=== PATIENT | male | born 1935 | race Caucasian/White ===

== ENCOUNTER 2020-09-21 23:35 | Inpatient (IN) | payer MEDICARE ==
[2020-09-22 00:05] LABS: Base Excess (BEa) -0.7 mEq/L (-2.0 to +3.0); CO2 Tension 51.6 mmHg (35.0-45.0); Calcium, Ionized (arterial) 1.21 mmol/L (1.12-1.30); Carboxyhemoglobin (COHb) 0.5 gm% (0.0-3.0); Hemoglobin (Hb) 12.7 g/dL (14.0-18.0); O2 Tension (PaO2), arterial 62.2 mmHg (> 60.0); Potassium - ABG Lab 4.4 mmol/L (3.70-5.30); Puncture Site LBA; pH, Arterial 7.32 (7.35-7.45)
[2020-09-22 00:05] LABS: #Monocytes 0.6 10x3/uL (0.0-1.1); #Neutrophils 12.9 10x3/uL (1.5-8.4); %Basophils 0.1 % (0.0-2.0); %Lymphocytes 2.4 % (18.0-47.0); %Monocytes 4.1 % (0.0-10.0); %Neutrophils 92.2 % (40.0-75.0); Hemoglobin 12.2 g/dL (13.5-17.5); Mean Corpuscular HGB CONC 31.6 g/dL (32.0-36.0); Mean Corpuscular Hemoglobin 32.3 pg (27.0-33.0); Mean Corpuscular Volume 102.1 fl (81.2-95.1); Mean Platelet Volume 11.2 fl (7.4-10.4); Platelet Count 312 10x3/uL (150-450); RBC Distribution Width 14.5 % (11.5-14.5); Red Blood Cell (RBC) Count 3.78 10x6/uL (4.32-5.72)
[2020-09-22 00:16] LABS: INR-International Normal Ratio 1.1; Prothrombin Time 11.9 sec (9.5-12.1)
[2020-09-22] MEDS ORDERED: Dexamethasone 10 MG/ML VIAL ONE ×2 (00:16→08:46)
[2020-09-22] MEDS ORDERED: Azithromycin 500 MG VIAL ONE (00:17)
[2020-09-22] MEDS ORDERED: cefTRIAXone\\ROCEPHIN 1 GM VIAL ONE ×2 (00:17→04:23)
[2020-09-22 00:18] LABS: ALT (SGPT) 42 U/L (8-55); AST (SGOT) 30 U/L (5-34); Albumin 2.7 g/dL (3.4-4.8); Alkaline Phosphatase 100 U/L (40-110); Anion Gap 13 mmol/L (10-20); BUN (Urea Nitrogen) 94 mg/dL (8.4-25.7); CRP (Inflammatory) 19.55 mg/dL (= or < 0.5); Calc. Creatinine Clearance 0 mL/min (70-130); Calcium 9.1 mg/dL (7.8-10.44); Carbon Dioxide 25 mmol/L (23-31); Chloride 108 mmol/L (98-107); Globulin 5.5 g/dL (2.4-3.5); Glucose 166 mg/dL (83-110); Potassium 4.4 mmol/L (3.5-5.1); Protein, Total 8.2 g/dL (5.8-8.1); Sodium 142 mmol/L (136-145)
[2020-09-22 01:33] LABS: Bilirubin Neg (Negative); Blood, Urine Negative (Negative); Glucose, Urine (Dipstick) Normal (Negative); Ketone, Urine Negative (Negative); Leukocyte Negative (Negative); Nitrite Negative (Negative); Protein, Urine (Dipstick) Negative (Neg-Trace); Specific Gravity, Urine 1.015 (1.002-1.036); Urobilinogen Normal mg/dL (Less than 2)
[2020-09-22 01:34] LABS: Clarity Slightly Cloudy (Clear)
[2020-09-22] MEDS ORDERED: Ondansetron PF 4 MG/2 ML Vial IVP PRN (03:48)
[2020-09-22] MEDS ORDERED: Acetaminophen 650 MG Suppository PR PRN (03:48)
[2020-09-22] MEDS ORDERED: cefTRIAXone\\ROCEPHIN 1 GM in Sodium Chloride 0.9% 100 ML IVPB SCH (04:00)
[2020-09-22] MEDS ORDERED: Sodium Chloride 0.9% 1,000 ML IV SCH (04:00)
[2020-09-22] MEDS ORDERED: REMDESIVIR 200 MG in Sodium Chloride 0.9% 250 ML 210 ML IV SCH (04:15)
[2020-09-22] MEDS ORDERED: [UNRECOGNIZED DRUG - REMARK] IVPB SCH (04:15)
[2020-09-22 07:14] LABS: #Monocytes 0.5 10x3/uL (0.0-1.1); #Neutrophils 11.4 10x3/uL (1.5-8.4); %Basophils 0.1 % (0.0-2.0); %Lymphocytes 3.5 % (18.0-47.0); %Monocytes 4.1 % (0.0-10.0); %Neutrophils 91.3 % (40.0-75.0); Hemoglobin 11.8 g/dL (13.5-17.5); Mean Corpuscular HGB CONC 32.2 g/dL (32.0-36.0); Mean Corpuscular Hemoglobin 32.9 pg (27.0-33.0); Mean Corpuscular Volume 102.2 fl (81.2-95.1); Mean Platelet Volume 11.2 fl (7.4-10.4); Platelet Count 293 10x3/uL (150-450); RBC Distribution Width 14.5 % (11.5-14.5); Red Blood Cell (RBC) Count 3.59 10x6/uL (4.32-5.72); White Blood Cell (WBC) Count 12.4 10x3/uL (3.5-10.5)
[2020-09-22 07:48] LABS: Anion Gap 14 mmol/L (10-20); BUN (Urea Nitrogen) 92 mg/dL (8.4-25.7); Calc. Creatinine Clearance 0 mL/min (70-130); Carbon Dioxide 25 mmol/L (23-31); Glucose 149 mg/dL (83-110); Magnesium 3.3 mg/dL (1.6-2.6); Potassium 4.5 mmol/L (3.5-5.1); Sodium 144 mmol/L (136-145)
[2020-09-22 07:53] LABS: Chloride 110 mmol/L (98-107)
[2020-09-22] MEDS ORDERED: Enoxaparin Sodium 30 MG/0.3 ML SYRINGE ONE (08:46)
[2020-09-22] MEDS ORDERED: Aspirin 300 MG Suppository ONE (08:47)
[2020-09-22] MEDS ORDERED: Pantoprazole 40 MG VIAL ONE (08:47)
[2020-09-22] MEDS: Dexamethasone 4 mg/ml Vial SLOW IVP SCH (09:08)
[2020-09-22] MEDS: Enoxaparin Sodium 30 MG/0.3 ML SYRINGE SC SCH (09:08)
[2020-09-22] MEDS: Pantoprazole 40 MG VIAL IVP SCH (09:08)
[2020-09-22] MEDS: Aspirin 300 MG Suppository PR SCH (09:08)
[2020-09-22] MEDS ORDERED: VANCOMYCIN 2 GRAM/400 ML BAG 2 GM in Premix Bag 1 BAG IVPB SCH (20:00)
[2020-09-23] MEDS: Azithromycin 500 MG in Sodium Chloride 0.9% 250 ML 250 ML IVPB SCH (02:16)
[2020-09-23] MEDS: cefTRIAXone\\ROCEPHIN 2 GM in Sodium Chloride 0.9% 100 ML IVPB SCH (03:56)
[2020-09-23] MEDS ORDERED: REMDESIVIR 100 MG in Sodium Chloride 0.9% 250 ML 230 ML IV SCH (04:15)
[2020-09-23 05:03] LABS: Magnesium 3.4 mg/dL (1.6-2.6)
[2020-09-23] MEDS ORDERED: Aspirin 81 mg Enteric Coated Tablet PO SCH (09:00)
[2020-09-23] MEDS: Enoxaparin Sodium 30 MG/0.3 ML SYRINGE SC SCH (09:34)
[2020-09-23] MEDS: Aspirin 300 MG Suppository PR SCH (09:34)
[2020-09-23] MEDS: Dexamethasone 4 mg/ml Vial SLOW IVP SCH (09:34)
[2020-09-23] MEDS: Pantoprazole 40 MG VIAL IVP SCH (09:35)
[2020-09-23 10:53] LABS: #Monocytes 0.7 10x3/uL (0.0-1.1); %Basophils 0.2 % (0.0-2.0); %Lymphocytes 2.4 % (18.0-47.0); %Monocytes 5.4 % (0.0-10.0); %Neutrophils 90.5 % (40.0-75.0); Hemoglobin 12.2 g/dL (13.5-17.5); Mean Corpuscular HGB CONC 31.6 g/dL (32.0-36.0); Mean Corpuscular Hemoglobin 32.3 pg (27.0-33.0); Mean Corpuscular Volume 102.1 fl (81.2-95.1); Mean Platelet Volume 11.2 fl (7.4-10.4); Platelet Count 351 10x3/uL (150-450); RBC Distribution Width 14.7 % (11.5-14.5); Red Blood Cell (RBC) Count 3.78 10x6/uL (4.32-5.72); White Blood Cell (WBC) Count 13.2 10x3/uL (3.5-10.5)
[2020-09-23 11:04] LABS: ALT (SGPT) 31 U/L (8-55); AST (SGOT) 23 U/L (5-34); Albumin 2.6 g/dL (3.4-4.8); Alkaline Phosphatase 102 U/L (40-110); Anion Gap 16 mmol/L (10-20); BUN (Urea Nitrogen) 86 mg/dL (8.4-25.7); Bilirubin, Total 0.6 mg/dL (0.2-1.2); Calc. Creatinine Clearance 47 mL/min (70-130); Calcium 9.3 mg/dL (7.8-10.44); Carbon Dioxide 23 mmol/L (23-31); Chloride 115 mmol/L (98-107); Globulin 5.1 g/dL (2.4-3.5); Glucose 148 mg/dL (83-110); Potassium 4.5 mmol/L (3.5-5.1); Protein, Total 7.7 g/dL (5.8-8.1); Sodium 149 mmol/L (136-145)
[2020-09-23] MEDS ORDERED: Furosemide 40 MG/4 ML VIAL SLOW IVP SCH (14:30)
[2020-09-23] MEDS ORDERED: Lorazepam 0.5 MG TAB PO PRN (16:13)
[2020-09-23] MEDS: Lorazepam 2 MG/ML VIAL SLOW IVP PRN (18:14)
[2020-09-23] MEDS: VANCOMYCIN 1.75 GM/350 ML BAG 1.75 GM in Premix Bag 1 BAG IVPB SCH (20:06)
[2020-09-24] MEDS: Azithromycin 500 MG in Sodium Chloride 0.9% 250 ML 250 ML IVPB SCH (01:26)
[2020-09-24] MEDS: Lorazepam 2 MG/ML VIAL SLOW IVP PRN (01:30)
[2020-09-24] MEDS: cefTRIAXone\\ROCEPHIN 2 GM in Sodium Chloride 0.9% 100 ML IVPB SCH (04:04)
[2020-09-24 04:53] LABS: ALT (SGPT) 34 U/L (8-55); AST (SGOT) 21 U/L (5-34); Albumin 2.5 g/dL (3.4-4.8); Alkaline Phosphatase 109 U/L (40-110); Anion Gap 18 mmol/L (10-20); BUN (Urea Nitrogen) 101 mg/dL (8.4-25.7); Bilirubin, Total 0.7 mg/dL (0.2-1.2); CRP (Inflammatory) 10.09 mg/dL (= or < 0.5); Calc. Creatinine Clearance 40 mL/min (70-130); Calcium 9.3 mg/dL (7.8-10.44); Carbon Dioxide 23 mmol/L (23-31); Chloride 115 mmol/L (98-107); Globulin 5.5 g/dL (2.4-3.5); Glucose 137 mg/dL (83-110); Potassium 4.8 mmol/L (3.5-5.1); Sodium 151 mmol/L (136-145)
[2020-09-24 05:11] LABS: Hemoglobin 12.6 g/dL (13.5-17.5); Mean Corpuscular HGB CONC 31.9 g/dL (32.0-36.0); Mean Corpuscular Hemoglobin 32.6 pg (27.0-33.0); Mean Corpuscular Volume 102.1 fl (81.2-95.1); Mean Platelet Volume 11.4 fl (7.4-10.4); Platelet Count 426 10x3/uL (150-450); Red Blood Cell (RBC) Count 3.87 10x6/uL (4.32-5.72); White Blood Cell (WBC) Count 14.9 10x3/uL (3.5-10.5)
[2020-09-24 05:16] LABS: #Monocytes 0.9 10x3/uL (0.0-1.1); #Neutrophils 12.9 10x3/uL (1.5-8.4); %Basophils 0.3 % (0.0-2.0); %Monocytes 6.1 % (0.0-10.0); %Neutrophils 89.3 % (40.0-75.0)
[2020-09-24] MEDS: Pantoprazole 40 MG VIAL IVP SCH (08:26)
[2020-09-24] MEDS: Dexamethasone 4 mg/ml Vial SLOW IVP SCH (08:26)
[2020-09-24] MEDS: Enoxaparin Sodium 30 MG/0.3 ML SYRINGE SC SCH (08:26)
[2020-09-24] MEDS: Aspirin 300 MG Suppository PR SCH (08:26)
[2020-09-24] MEDS ORDERED: Dexmedetomidine In 0.9 % NaCl 100 ML IVPB SCH (09:15)
[2020-09-24 10:58] LABS: Actual Bicarbonate (HCO3a) 23.8 mEq/L (22-28); Base Excess (BEa) -3.6 mEq/L (-2.0 to +3.0); CO2 Tension 52.5 mmHg (35.0-45.0); Calcium, Ionized (arterial) 1.24 mmol/L (1.12-1.30); Carboxyhemoglobin (COHb) 0.4 gm% (0.0-3.0); Hemoglobin (Hb) 13.3 g/dL (14.0-18.0); O2 Tension (PaO2), arterial 70.5 mmHg (> 60.0); Potassium - ABG Lab 4.7 mmol/L (3.70-5.30); Puncture Site RRA; pH, Arterial 7.27 (7.35-7.45)
[2020-09-24] MEDS ORDERED: Carvedilol 12.5 MG TAB PO SCH (11:00)
[2020-09-24 11:03] LABS: ALV-art Gradient 362.975 mmHg (0-20)
[2020-09-24] MEDS ORDERED: Ventilator Sedation Protocol 1 EACH FS SCH ×3 (13:15→13:30)
[2020-09-24] MEDS ORDERED: Vecuronium Bromide 50 MG in Sodium Chloride 0.9% 250 ML 250 ML IV SCH (13:15)
[2020-09-24] MEDS ORDERED: Propofol 1,000 MG/100 ML VIAL IV ONE (13:29)
[2020-09-24] MEDS ORDERED: EPINEPHrine 1 MG/10 ML Abboject SYRINGE ONE (13:41)
[2020-09-24] MEDS ORDERED: Norepinephrine 4 MG/4 ML VIAL ONE (13:43)
[2020-09-24] MEDS ORDERED: Lorazepam 2 MG/ML VIAL SLOW IVP PRN (13:45)
[2020-09-24] MEDS ORDERED: Fentanyl BOLUS 250 ML IVPB PRN (13:45)
[2020-09-24] MEDS ORDERED: DISCONTINUE PREVIOUS NARCOTIC PAIN MEDICATIONS AND BENZODIAZEPINES FS SCH (13:45)
[2020-09-24] MEDS ORDERED: Morphine 2 MG/ML VIAL SLOW IVP PRN (13:45)
[2020-09-24] MEDS ORDERED: fentaNYL Citrate-0.9 % NaCl/PF 100 ML IVPB SCH (13:45)
[2020-09-24] MEDS ORDERED: Norepinephrine 8 MG/0.9% NS 250 ML IVPB SCH (13:45)
[2020-09-24] MEDS ORDERED: Propofol BOLUS 1,000 MG/100 ML VIAL IV PRN (13:45)
[2020-09-24] MEDS: Propofol 1,000 MG/100 ML VIAL IV PRN (13:56)
[2020-09-24] MEDS: Vecuronium Bromide 50 MG in Sodium Chloride 0.9% 250 ML 250 ML IV SCH (14:27)
[2020-09-24 15:40] LABS: Actual Bicarbonate (HCO3a) 22.3 mEq/L (22-28); Base Excess (BEa) -2.5 mEq/L (-2.0 to +3.0); CO2 Tension 38.7 mmHg (35.0-45.0); Calcium, Ionized (arterial) 1.21 mmol/L (1.12-1.30); Carboxyhemoglobin (COHb) 0.3 gm% (0.0-3.0); Hemoglobin (Hb) 12.3 g/dL (14.0-18.0); O2 Tension (PaO2), arterial 190.8 mmHg (> 60.0); Potassium - ABG Lab 4.9 mmol/L (3.70-5.30); Puncture Site RRA; pH, Arterial 7.38 (7.35-7.45)
[2020-09-24 15:44] LABS: ALV-art Gradient 473.825 mmHg (0-20)
[2020-09-24] MEDS: Carvedilol 12.5 MG TAB PO SCH (18:40)
[2020-09-24 20:52] LABS: Vancomycin, Trough 32.9 ug/mL
[2020-09-24] MEDS: VANCOMYCIN 1.75 GM/350 ML BAG 1.75 GM in Premix Bag 1 BAG IVPB SCH (20:54)
[2020-09-24] MEDS ORDERED: VANCOMYCIN 1.75 GM/350 ML BAG 1.75 GM in Premix Bag 1 BAG IVPB SCH (21:00)
[2020-09-24 23:45] LABS: Actual Bicarbonate (HCO3a) 23.8 mEq/L (22-28); Base Excess (BEa) -1.4 mEq/L (-2.0 to +3.0); CO2 Tension 41.8 mmHg (35.0-45.0); Calcium, Ionized (arterial) 1.27 mmol/L (1.12-1.30); Carboxyhemoglobin (COHb) 0.2 gm% (0.0-3.0); Hemoglobin (Hb) 14.6 g/dL (14.0-18.0); Potassium - ABG Lab 4.6 mmol/L (3.70-5.30); Puncture Site RRA; pH, Arterial 7.37 (7.35-7.45)
[2020-09-25] MEDS: Propofol 1,000 MG/100 ML VIAL IV PRN ×2 (01:05→08:21)
[2020-09-25] MEDS ORDERED: Sodium Chloride 0.9% 250 ML 250 ML ONE (01:43)
[2020-09-25] MEDS: Azithromycin 500 MG in Sodium Chloride 0.9% 250 ML 250 ML IVPB SCH (01:54)
[2020-09-25] MEDS: cefTRIAXone\\ROCEPHIN 2 GM in Sodium Chloride 0.9% 100 ML IVPB SCH (03:21)
[2020-09-25] MEDS: Vecuronium Bromide 50 MG in Sodium Chloride 0.9% 250 ML 250 ML IV SCH ×2 (04:08→20:07)
[2020-09-25 04:36] LABS: ALT (SGPT) 28 U/L (8-55); AST (SGOT) 12 U/L (5-34); Albumin 2.4 g/dL (3.4-4.8); Alkaline Phosphatase 94 U/L (40-110); Anion Gap 18 mmol/L (10-20); BUN (Urea Nitrogen) 116 mg/dL (8.4-25.7); Bilirubin, Total 0.7 mg/dL (0.2-1.2); CRP (Inflammatory) 6.21 mg/dL (= or < 0.5); Calc. Creatinine Clearance 33 mL/min (70-130); Carbon Dioxide 22 mmol/L (23-31); Chloride 119 mmol/L (98-107); Globulin 4.9 g/dL (2.4-3.5); Glucose 136 mg/dL (83-110); Potassium 4.7 mmol/L (3.5-5.1); Protein, Total 7.3 g/dL (5.8-8.1); Sodium 154 mmol/L (136-145)
[2020-09-25 04:37] LABS: #Monocytes 0.8 10x3/uL (0.0-1.1); #Neutrophils 10.1 10x3/uL (1.5-8.4); %Basophils 0.2 % (0.0-2.0); %Lymphocytes 2.4 % (18.0-47.0); %Monocytes 6.9 % (0.0-10.0); %Neutrophils 88.7 % (40.0-75.0); Hemoglobin 11.7 g/dL (13.5-17.5); Mean Corpuscular HGB CONC 31.4 g/dL (32.0-36.0); Mean Corpuscular Hemoglobin 32.3 pg (27.0-33.0); Mean Platelet Volume 11.4 fl (7.4-10.4); Platelet Count 382 10x3/uL (150-450); Red Blood Cell (RBC) Count 3.62 10x6/uL (4.32-5.72); White Blood Cell (WBC) Count 11.4 10x3/uL (3.5-10.5)
[2020-09-25] MEDS: Aspirin 300 MG Suppository PR SCH (08:21)
[2020-09-25] MEDS: Dexamethasone 4 mg/ml Vial SLOW IVP SCH (08:22)
[2020-09-25] MEDS: Pantoprazole 40 MG VIAL IVP SCH (08:23)
[2020-09-25] MEDS ORDERED: Furosemide 40 MG/4 ML VIAL SLOW IVP SCH (09:00)
[2020-09-25] MEDS: Carvedilol 12.5 MG TAB PO SCH ×2 (09:13→18:42)
[2020-09-25] MEDS: Enoxaparin Sodium 30 MG/0.3 ML SYRINGE SC SCH (09:14)
[2020-09-25 09:46] LABS: Actual Bicarbonate (HCO3a) 21.9 mEq/L (22-28); Base Excess (BEa) -2.7 mEq/L (-2.0 to +3.0); CO2 Tension 37.2 mmHg (35.0-45.0); Calcium, Ionized (arterial) 1.23 mmol/L (1.12-1.30); Carboxyhemoglobin (COHb) 0.3 gm% (0.0-3.0); O2 Tension (PaO2), arterial 296.7 mmHg (> 60.0); Potassium - ABG Lab 4.5 mmol/L (3.70-5.30); Puncture Site RBA; pH, Arterial 7.39 (7.35-7.45)
[2020-09-25 17:10] LABS: Anion Gap 16 mmol/L (10-20); Calc. Creatinine Clearance 28 mL/min (70-130); Carbon Dioxide 23 mmol/L (23-31); Chloride 118 mmol/L (98-107); Glucose 138 mg/dL (83-110); Potassium 4.6 mmol/L (3.5-5.1); Sodium 152 mmol/L (136-145)
[2020-09-25 17:20] LABS: BUN (Urea Nitrogen) 119 mg/dL (8.4-25.7)
[2020-09-25 21:14] LABS: Vancomycin, Random 24.6 ug/mL (See Comment)
[2020-09-26] MEDS: Azithromycin 500 MG in Sodium Chloride 0.9% 250 ML 250 ML IVPB SCH (01:18)
[2020-09-26] MEDS: Propofol 1,000 MG/100 ML VIAL IV PRN ×4 (01:46→21:26)
[2020-09-26] MEDS: cefTRIAXone\\ROCEPHIN 2 GM in Sodium Chloride 0.9% 100 ML IVPB SCH (03:46)
[2020-09-26 04:09] LABS: #Monocytes 0.6 10x3/uL (0.0-1.1); #Neutrophils 12.1 10x3/uL (1.5-8.4); %Basophils 0.2 % (0.0-2.0); %Lymphocytes 2.4 % (18.0-47.0); %Monocytes 4.2 % (0.0-10.0); %Neutrophils 91.6 % (40.0-75.0); Hemoglobin 11.7 g/dL (13.5-17.5); Mean Corpuscular Hemoglobin 31.7 pg (27.0-33.0); Mean Corpuscular Volume 102.2 fl (81.2-95.1); Mean Platelet Volume 11.5 fl (7.4-10.4); Platelet Count 321 10x3/uL (150-450); Red Blood Cell (RBC) Count 3.69 10x6/uL (4.32-5.72); White Blood Cell (WBC) Count 13.2 10x3/uL (3.5-10.5)
[2020-09-26 04:25] LABS: ALT (SGPT) 25 U/L (8-55); AST (SGOT) 16 U/L (5-34); Albumin 2.4 g/dL (3.4-4.8); Alkaline Phosphatase 74 U/L (40-110); Anion Gap 16 mmol/L (10-20); Bilirubin, Total 0.6 mg/dL (0.2-1.2); CRP (Inflammatory) 3.96 mg/dL (= or < 0.5); Calc. Creatinine Clearance 27 mL/min (70-130); Carbon Dioxide 22 mmol/L (23-31); Chloride 116 mmol/L (98-107); Globulin 4.5 g/dL (2.4-3.5); Glucose 137 mg/dL (83-110); Potassium 4.5 mmol/L (3.5-5.1); Protein, Total 6.9 g/dL (5.8-8.1); Sodium 149 mmol/L (136-145)
[2020-09-26 04:34] LABS: BUN (Urea Nitrogen) 120 mg/dL (8.4-25.7)
[2020-09-26] MEDS: Vecuronium Bromide 50 MG in Sodium Chloride 0.9% 250 ML 250 ML IV SCH (06:16)
[2020-09-26] MEDS: Pantoprazole 40 MG VIAL IVP SCH (08:19)
[2020-09-26] MEDS: Carvedilol 12.5 MG TAB PO SCH ×2 (08:19→15:45)
[2020-09-26] MEDS: Enoxaparin Sodium 30 MG/0.3 ML SYRINGE SC SCH (08:19)
[2020-09-26] MEDS: Aspirin 300 MG Suppository PR SCH (08:19)
[2020-09-26] MEDS: Dexamethasone 4 mg/ml Vial SLOW IVP SCH (08:19)
[2020-09-26 10:37] LABS: Magnesium 3.6 mg/dL (1.6-2.6); Phosphorus 4.4 mg/dL (2.3-4.7)
[2020-09-26 10:58] LABS: Actual Bicarbonate (HCO3a) 21.6 mEq/L (22-28); Base Excess (BEa) -3.5 mEq/L (-2.0 to +3.0); CO2 Tension 39.4 mmHg (35.0-45.0); Calcium, Ionized (arterial) 1.23 mmol/L (1.12-1.30); Carboxyhemoglobin (COHb) 0.3 gm% (0.0-3.0); Potassium - ABG Lab 4.6 mmol/L (3.70-5.30); Puncture Site LRA; pH, Arterial 7.36 (7.35-7.45)
[2020-09-26 11:34] LABS: Bilirubin Neg (Negative); Blood, Urine 150 (Negative); Clarity Clear (Clear); Glucose, Urine (Dipstick) Normal (Negative); Ketone, Urine Negative (Negative); Leukocyte Negative (Negative); Nitrite Negative (Negative); Protein, Urine (Dipstick) 15 mg/dl (Neg-Trace); Specific Gravity, Urine 1.015 (1.002-1.036); Urobilinogen Normal mg/dL (Less than 2)
[2020-09-26 12:28] LABS: Bacteria/HPF None Seen HPF (None Seen); Squamous Epithelial 0-3 HPF (0-3); WBC/HPF 0-3 HPF (0-3)
[2020-09-26 12:30] LABS: Urine Culture Reflex No No
[2020-09-26] MEDS: Dextrose 5% in Water 1,000 ML IV SCH (14:38)
[2020-09-26] MEDS: WATER IV SCH (16:29)
[2020-09-26] MEDS: VECURONIUM BROMIDE IV SCH (16:29)
[2020-09-26] MEDS: DEXTROSE 5% IV SCH (16:29)
[2020-09-26 20:17] LABS: Vancomycin, Random 19.8 ug/mL (See Comment)
[2020-09-27] MEDS: Azithromycin 500 MG in Sodium Chloride 0.9% 250 ML 250 ML IVPB SCH (01:30)
[2020-09-27] MEDS: Dextrose 5% in Water 1,000 ML IV SCH (02:43)
[2020-09-27] MEDS: WATER IV SCH ×2 (02:43→16:48)
[2020-09-27] MEDS: DEXTROSE 5% IV SCH ×2 (02:43→16:48)
[2020-09-27] MEDS: VECURONIUM BROMIDE IV SCH ×2 (02:43→16:48)
[2020-09-27] MEDS: cefTRIAXone\\ROCEPHIN 2 GM in Sodium Chloride 0.9% 100 ML IVPB SCH (03:57)
[2020-09-27 04:25] LABS: #Monocytes 0.8 10x3/uL (0.0-1.1); #Neutrophils 11.9 10x3/uL (1.5-8.4); %Basophils 0.2 % (0.0-2.0); %Lymphocytes 2.4 % (18.0-47.0); %Monocytes 6.2 % (0.0-10.0); %Neutrophils 88.9 % (40.0-75.0); Hemoglobin 10.5 g/dL (13.5-17.5); Mean Corpuscular HGB CONC 31.6 g/dL (32.0-36.0); Mean Corpuscular Hemoglobin 31.6 pg (27.0-33.0); Mean Platelet Volume 11.8 fl (7.4-10.4); Platelet Count 242 10x3/uL (150-450); RBC Distribution Width 14.6 % (11.5-14.5); Red Blood Cell (RBC) Count 3.32 10x6/uL (4.32-5.72); White Blood Cell (WBC) Count 13.3 10x3/uL (3.5-10.5)
[2020-09-27 04:38] LABS: ALT (SGPT) 23 U/L (8-55); AST (SGOT) 14 U/L (5-34); Albumin 2.1 g/dL (3.4-4.8); Alkaline Phosphatase 57 U/L (40-110); Anion Gap 12 mmol/L (10-20); Bilirubin, Total 0.5 mg/dL (0.2-1.2); Calc. Creatinine Clearance 25 mL/min (70-130); Calcium 8.4 mg/dL (7.8-10.44); Carbon Dioxide 22 mmol/L (23-31); Chloride 110 mmol/L (98-107); Globulin 3.7 g/dL (2.4-3.5); Glucose 228 mg/dL (83-110); Potassium 4.1 mmol/L (3.5-5.1); Protein, Total 5.8 g/dL (5.8-8.1); Sodium 140 mmol/L (136-145)
[2020-09-27] MEDS ORDERED: Dextrose 5% in Water 1,000 ML IV PRN (06:18)
[2020-09-27] MEDS ORDERED: Dextrose 50% Abboject 50 ML SYRINGE SLOW IVP PRN (06:18)
[2020-09-27] MEDS: HumaLOG 300 UNITS/3 ML VIAL SC PRN (06:28)
[2020-09-27 06:40] LABS: BUN (Urea Nitrogen) Greater than 125 mg/dL (8.4-25.7)
[2020-09-27] MEDS: Enoxaparin Sodium 30 MG/0.3 ML SYRINGE SC SCH (08:00)
[2020-09-27] MEDS: Dexamethasone 4 mg/ml Vial SLOW IVP SCH (08:00)
[2020-09-27] MEDS: Aspirin 300 MG Suppository PR SCH (08:00)
[2020-09-27] MEDS: Pantoprazole 40 MG VIAL IVP SCH (08:00)
[2020-09-27] MEDS: Carvedilol 12.5 MG TAB PO SCH (08:00)
[2020-09-27] MEDS: Propofol 1,000 MG/100 ML VIAL IV PRN ×2 (09:34→16:48)
[2020-09-27 09:48] LABS: ALV-art Gradient 159.625 mmHg (0-20); Actual Bicarbonate (HCO3a) 19.7 mEq/L (22-28); Base Excess (BEa) -3.9 mEq/L (-2.0 to +3.0); CO2 Tension 31.1 mmHg (35.0-45.0); Calcium, Ionized (arterial) 1.17 mmol/L (1.12-1.30); Carboxyhemoglobin (COHb) 0.3 gm% (0.0-3.0); Hemoglobin (Hb) 11.4 g/dL (14.0-18.0); O2 Tension (PaO2), arterial 86.7 mmHg (> 60.0); Potassium - ABG Lab 4.2 mmol/L (3.70-5.30); Puncture Site RBA; pH, Arterial 7.42 (7.35-7.45)
[2020-09-27] MEDS: Furosemide 100 MG/10 ML VIAL SLOW IVP SCH ×2 (14:19→20:24)
[2020-09-28] MEDS: Azithromycin 500 MG in Sodium Chloride 0.9% 250 ML 250 ML IVPB SCH (01:38)
[2020-09-28] MEDS: cefTRIAXone\\ROCEPHIN 2 GM in Sodium Chloride 0.9% 100 ML IVPB SCH (03:30)
[2020-09-28 03:38] LABS: #Monocytes 0.9 10x3/uL (0.0-1.1); %Basophils 0.1 % (0.0-2.0); %Lymphocytes 2.2 % (18.0-47.0); %Monocytes 5.1 % (0.0-10.0); %Neutrophils 90.3 % (40.0-75.0); Hemoglobin 10.6 g/dL (13.5-17.5); Mean Corpuscular HGB CONC 33.2 g/dL (32.0-36.0); Mean Corpuscular Hemoglobin 32.2 pg (27.0-33.0); Mean Platelet Volume 12.3 fl (7.4-10.4); Platelet Count 195 10x3/uL (150-450); RBC Distribution Width 14.4 % (11.5-14.5); Red Blood Cell (RBC) Count 3.29 10x6/uL (4.32-5.72); White Blood Cell (WBC) Count 16.6 10x3/uL (3.5-10.5)
[2020-09-28 03:47] LABS: ALT (SGPT) 20 U/L (8-55); AST (SGOT) 13 U/L (5-34); Alkaline Phosphatase 50 U/L (40-110); Anion Gap 15 mmol/L (10-20); Bilirubin, Total 0.5 mg/dL (0.2-1.2); Calc. Creatinine Clearance 23 mL/min (70-130); Calcium 8.1 mg/dL (7.8-10.44); Carbon Dioxide 21 mmol/L (23-31); Chloride 104 mmol/L (98-107); Globulin 3.7 g/dL (2.4-3.5); Glucose 187 mg/dL (83-110); Potassium 4.3 mmol/L (3.5-5.1); Protein, Total 5.7 g/dL (5.8-8.1); Sodium 136 mmol/L (136-145)
[2020-09-28 04:09] LABS: BUN (Urea Nitrogen) 146 mg/dL (8.4-25.7)
[2020-09-28] MEDS: Propofol 1,000 MG/100 ML VIAL IV PRN (05:25)
[2020-09-28] MEDS: HumaLOG 300 UNITS/3 ML VIAL SC PRN (05:28)
[2020-09-28] MEDS: Dexamethasone 4 mg/ml Vial SLOW IVP SCH (08:22)
[2020-09-28] MEDS: Aspirin 81 mg Enteric Coated Tablet PO SCH (08:22)
[2020-09-28] MEDS: Enoxaparin Sodium 30 MG/0.3 ML SYRINGE SC SCH (08:23)
[2020-09-28] MEDS: Furosemide 100 MG/10 ML VIAL SLOW IVP SCH ×4 (08:23→20:44)
[2020-09-28] MEDS: Pantoprazole 40 MG VIAL IVP SCH (08:23)
[2020-09-28 09:27] LABS: Actual Bicarbonate (HCO3a) 19.9 mEq/L (22-28); Base Excess (BEa) -3.3 mEq/L (-2.0 to +3.0); CO2 Tension 30.1 mmHg (35.0-45.0); Calcium, Ionized (arterial) 1.14 mmol/L (1.12-1.30); Carboxyhemoglobin (COHb) 0.3 gm% (0.0-3.0); Hemoglobin (Hb) 11.6 g/dL (14.0-18.0); O2 Tension (PaO2), arterial 59.5 mmHg (> 60.0); Potassium - ABG Lab 4.1 mmol/L (3.70-5.30); Puncture Site RBA; pH, Arterial 7.44 (7.35-7.45)
[2020-09-28 09:29] LABS: ALV-art Gradient 188.075 mmHg (0-20)
[2020-09-28] MEDS ORDERED: Dexmedetomidine 200 MCG/2 ML VIAL SLOW IVP SCH (10:15)
[2020-09-28] MEDS: Dexmedetomidine In 0.9 % NaCl 400 MCG in Premix Bag 1 BAG IVPB SCH ×2 (11:09→20:43)
[2020-09-28] MEDS ORDERED: Bisacodyl 10 MG SUPP PR PRN (17:36)
[2020-09-28] MEDS ORDERED: Fentanyl CADD 100 ML IVPB SCH (19:30)
[2020-09-28] MEDS: Metolazone 5 MG TAB PO SCH (20:43)
[2020-09-28] MEDS ORDERED: Metolazone 5 MG TAB PO SCH (21:00)
[2020-09-28 21:52] LABS: Actual Bicarbonate (HCO3a) 19.9 mEq/L (22-28); Base Excess (BEa) -3.5 mEq/L (-2.0 to +3.0); CO2 Tension 30.6 mmHg (35.0-45.0); Calcium, Ionized (arterial) 1.12 mmol/L (1.12-1.30); Carboxyhemoglobin (COHb) 0.7 gm% (0.0-3.0); Hemoglobin (Hb) 12.4 g/dL (14.0-18.0); O2 Tension (PaO2), arterial 76.6 mmHg (> 60.0); Potassium - ABG Lab 4.4 mmol/L (3.70-5.30); Puncture Site RBA; pH, Arterial 7.43 (7.35-7.45)
[2020-09-29] MEDS: Azithromycin 500 MG in Sodium Chloride 0.9% 250 ML 250 ML IVPB SCH (01:20)
[2020-09-29 04:31] LABS: #Monocytes 0.8 10x3/uL (0.0-1.1); %Basophils 0.1 % (0.0-2.0); %Monocytes 4.5 % (0.0-10.0); %Neutrophils 91.6 % (40.0-75.0); Hemoglobin 11.8 g/dL (13.5-17.5); Mean Corpuscular HGB CONC 32.9 g/dL (32.0-36.0); Mean Corpuscular Hemoglobin 32.1 pg (27.0-33.0); Mean Corpuscular Volume 97.6 fl (81.2-95.1); Mean Platelet Volume 12.7 fl (7.4-10.4); Platelet Count 169 10x3/uL (150-450); RBC Distribution Width 14.2 % (11.5-14.5); Red Blood Cell (RBC) Count 3.68 10x6/uL (4.32-5.72); White Blood Cell (WBC) Count 18.6 10x3/uL (3.5-10.5)
[2020-09-29 04:38] LABS: ALT (SGPT) 19 U/L (8-55); AST (SGOT) 13 U/L (5-34); Albumin 2.2 g/dL (3.4-4.8); Alkaline Phosphatase 61 U/L (40-110); Anion Gap 19 mmol/L (10-20); Bilirubin, Total 0.6 mg/dL (0.2-1.2); Calc. Creatinine Clearance 24 mL/min (70-130); Calcium 8.3 mg/dL (7.8-10.44); Carbon Dioxide 21 mmol/L (23-31); Chloride 102 mmol/L (98-107); Globulin 3.9 g/dL (2.4-3.5); Glucose 132 mg/dL (83-110); Potassium 4.5 mmol/L (3.5-5.1); Protein, Total 6.1 g/dL (5.8-8.1); Sodium 137 mmol/L (136-145)
[2020-09-29 04:49] LABS: BUN (Urea Nitrogen) 159 mg/dL (8.4-25.7)
[2020-09-29] MEDS: cefTRIAXone\\ROCEPHIN 2 GM in Sodium Chloride 0.9% 100 ML IVPB SCH (04:55)
[2020-09-29] MEDS: Dexamethasone 4 mg/ml Vial SLOW IVP SCH (08:10)
[2020-09-29] MEDS: Aspirin 81 mg Enteric Coated Tablet PO SCH (08:11)
[2020-09-29] MEDS: Pantoprazole 40 MG VIAL IVP SCH (08:11)
[2020-09-29] MEDS: Furosemide 100 MG/10 ML VIAL SLOW IVP SCH ×4 (08:11→20:17)
[2020-09-29] MEDS: Enoxaparin Sodium 30 MG/0.3 ML SYRINGE SC SCH (08:11)
[2020-09-29] MEDS: Metolazone 5 MG TAB PO SCH ×2 (08:12→20:18)
[2020-09-29 09:25] LABS: Actual Bicarbonate (HCO3a) 20.6 mEq/L (22-28); Base Excess (BEa) -3.6 mEq/L (-2.0 to +3.0); CO2 Tension 34.4 mmHg (35.0-45.0); Calcium, Ionized (arterial) 1.13 mmol/L (1.12-1.30); Carboxyhemoglobin (COHb) 0.3 gm% (0.0-3.0); Hemoglobin (Hb) 12.7 g/dL (14.0-18.0); Potassium - ABG Lab 4.1 mmol/L (3.70-5.30); Puncture Site RBA
[2020-09-29] MEDS: Dexmedetomidine In 0.9 % NaCl 400 MCG in Premix Bag 1 BAG IVPB SCH (20:18)
[2020-09-30] MEDS: Azithromycin 500 MG in Sodium Chloride 0.9% 250 ML 250 ML IVPB SCH (02:58)
[2020-09-30] MEDS: cefTRIAXone\\ROCEPHIN 2 GM in Sodium Chloride 0.9% 100 ML IVPB SCH (03:57)
[2020-09-30] MEDS: Metolazone 5 MG TAB PO SCH ×2 (08:03→20:53)
[2020-09-30] MEDS: Enoxaparin Sodium 30 MG/0.3 ML SYRINGE SC SCH (08:03)
[2020-09-30] MEDS: Pantoprazole 40 MG VIAL IVP SCH (08:03)
[2020-09-30] MEDS: Aspirin 81 mg Enteric Coated Tablet PO SCH (08:03)
[2020-09-30] MEDS: Dexamethasone 4 mg/ml Vial SLOW IVP SCH (08:07)
[2020-09-30] MEDS: Furosemide 100 MG/10 ML VIAL SLOW IVP SCH (08:07)
[2020-09-30 09:36] LABS: Base Excess (BEa) -0.9 mEq/L (-2.0 to +3.0); CO2 Tension 35.8 mmHg (35.0-45.0); Carboxyhemoglobin (COHb) 0.7 gm% (0.0-3.0); Hemoglobin (Hb) 13.6 g/dL (14.0-18.0); O2 Tension (PaO2), arterial 46.6 mmHg (> 60.0); Puncture Site LBA; pH, Arterial 7.43 (7.35-7.45)
[2020-09-30] MEDS: Dexmedetomidine In 0.9 % NaCl 400 MCG in Premix Bag 1 BAG IVPB SCH ×2 (10:51→17:27)
[2020-10-01] MEDS: Azithromycin 500 MG in Sodium Chloride 0.9% 250 ML 250 ML IVPB SCH (00:21)
[2020-10-01 03:13] LABS: #Monocytes 0.9 10x3/uL (0.0-1.1); #Neutrophils 16.1 10x3/uL (1.5-8.4); %Basophils 0.1 % (0.0-2.0); %Lymphocytes 2.3 % (18.0-47.0); %Monocytes 5.1 % (0.0-10.0); %Neutrophils 91.4 % (40.0-75.0); Hemoglobin 11.3 g/dL (13.5-17.5); Mean Corpuscular HGB CONC 33.5 g/dL (32.0-36.0); Mean Corpuscular Hemoglobin 32.4 pg (27.0-33.0); Mean Corpuscular Volume 96.6 fl (81.2-95.1); Mean Platelet Volume 13.5 fl (7.4-10.4); Platelet Count 131 10x3/uL (150-450); RBC Distribution Width 14.6 % (11.5-14.5); Red Blood Cell (RBC) Count 3.49 10x6/uL (4.32-5.72); White Blood Cell (WBC) Count 17.6 10x3/uL (3.5-10.5)
[2020-10-01 03:23] LABS: ALT (SGPT) 39 U/L (8-55); AST (SGOT) 28 U/L (5-34); Alkaline Phosphatase 59 U/L (40-110); Anion Gap 20 mmol/L (10-20); Bilirubin, Total 0.5 mg/dL (0.2-1.2); Calc. Creatinine Clearance 23 mL/min (70-130); Calcium 8.3 mg/dL (7.8-10.44); Carbon Dioxide 22 mmol/L (23-31); Chloride 98 mmol/L (98-107); Globulin 3.6 g/dL (2.4-3.5); Glucose 157 mg/dL (83-110); Protein, Total 5.6 g/dL (5.8-8.1); Sodium 136 mmol/L (136-145)
[2020-10-01] MEDS: cefTRIAXone\\ROCEPHIN 2 GM in Sodium Chloride 0.9% 100 ML IVPB SCH (03:27)
[2020-10-01 03:40] LABS: BUN (Urea Nitrogen) 190 mg/dL (8.4-25.7)
[2020-10-01] MEDS: Dexmedetomidine In 0.9 % NaCl 400 MCG in Premix Bag 1 BAG IVPB SCH ×2 (05:04→11:33)
[2020-10-01] MEDS: Dexamethasone 4 mg/ml Vial SLOW IVP SCH (08:05)
[2020-10-01] MEDS: Metolazone 5 MG TAB PO SCH (08:05)
[2020-10-01] MEDS: Pantoprazole 40 MG VIAL IVP SCH (08:05)
[2020-10-01] MEDS: Enoxaparin Sodium 30 MG/0.3 ML SYRINGE SC SCH (08:05)
[2020-10-01] MEDS: Furosemide 100 MG/10 ML VIAL SLOW IVP SCH (08:05)
[2020-10-01] MEDS: Aspirin 81 mg Enteric Coated Tablet PO SCH (08:05)
[2020-10-01] MEDS ORDERED: Furosemide 100 MG/10 ML VIAL IVPB SCH (09:00)
[2020-10-01] MEDS: Sodium Chloride 0.9% 1,000 ML IV SCH (18:23)
[2020-10-02] MEDS: Dexmedetomidine In 0.9 % NaCl 400 MCG in Premix Bag 1 BAG IVPB SCH ×3 (00:40→15:56)
[2020-10-02] MEDS: Azithromycin 500 MG in Sodium Chloride 0.9% 250 ML 250 ML IVPB SCH (01:10)
[2020-10-02] MEDS: cefTRIAXone\\ROCEPHIN 2 GM in Sodium Chloride 0.9% 100 ML IVPB SCH (03:39)
[2020-10-02 04:31] LABS: #Neutrophils 14.4 10x3/uL (1.5-8.4); %Basophils 0.1 % (0.0-2.0); %Neutrophils 90.9 % (40.0-75.0); Hemoglobin 11.6 g/dL (13.5-17.5); Mean Corpuscular HGB CONC 32.5 g/dL (32.0-36.0); Mean Corpuscular Hemoglobin 31.6 pg (27.0-33.0); Mean Corpuscular Volume 97.3 fl (81.2-95.1); Mean Platelet Volume 14.1 fl (7.4-10.4); Platelet Count 138 10x3/uL (150-450); RBC Distribution Width 14.5 % (11.5-14.5); Red Blood Cell (RBC) Count 3.67 10x6/uL (4.32-5.72); White Blood Cell (WBC) Count 15.8 10x3/uL (3.5-10.5)
[2020-10-02 04:46] LABS: ALT (SGPT) 42 U/L (8-55); AST (SGOT) 20 U/L (5-34); Albumin 2.1 g/dL (3.4-4.8); Alkaline Phosphatase 55 U/L (40-110); Anion Gap 21 mmol/L (10-20); Bilirubin, Total 0.5 mg/dL (0.2-1.2); Calc. Creatinine Clearance 26 mL/min (70-130); Calcium 8.6 mg/dL (7.8-10.44); Carbon Dioxide 23 mmol/L (23-31); Chloride 98 mmol/L (98-107); Globulin 3.7 g/dL (2.4-3.5); Glucose 188 mg/dL (83-110); Protein, Total 5.8 g/dL (5.8-8.1); Sodium 138 mmol/L (136-145)
[2020-10-02 05:05] LABS: BUN (Urea Nitrogen) 194 mg/dL (8.4-25.7)
[2020-10-02] MEDS: Enoxaparin Sodium 30 MG/0.3 ML SYRINGE SC SCH (07:41)
[2020-10-02] MEDS: Pantoprazole 40 MG VIAL IVP SCH (07:42)
[2020-10-02] MEDS: Furosemide 100 MG/10 ML VIAL SLOW IVP SCH (07:42)
[2020-10-02] MEDS: Aspirin 81 mg Enteric Coated Tablet PO SCH (07:42)
[2020-10-02] MEDS: Dexamethasone 4 mg/ml Vial SLOW IVP SCH (07:42)
[2020-10-02] MEDS ORDERED: Metolazone 5 MG TAB PO SCH (09:00)
[2020-10-02] MEDS: Sodium Chloride 0.9% 1,000 ML IV SCH (15:56)
[2020-10-02 18:52] LABS: Actual Bicarbonate (HCO3v) 29 mEq/L (22-28); Base Excess 3.8 mEq/L (-2.0 to +3.0); Chloride (VBG) 97 mmol/L (98-106); Hemoglobin (Hb) 12.9 g/dL (12.6-17.4); Potassium (VBG) 4.18 mmol/L (3.70-5.30); Puncture Site Other Site; RapidComm Collect By CBN; Sodium 135.7 mmol/L (133-146); pH (venous) 7.43 (7.32-7.43)
[2020-10-02 19:37] LABS: Anion Gap 22 mmol/L (10-20); Calc. Creatinine Clearance 26 mL/min (70-130); Calcium 8.8 mg/dL (7.8-10.44); Carbon Dioxide 24 mmol/L (23-31); Chloride 97 mmol/L (98-107); Glucose 210 mg/dL (83-110); Potassium 4.3 mmol/L (3.5-5.1); Sodium 139 mmol/L (136-145)
[2020-10-02 19:47] LABS: BUN (Urea Nitrogen) 209 mg/dL (8.4-25.7)
[2020-10-03] MEDS: Dexmedetomidine In 0.9 % NaCl 400 MCG in Premix Bag 1 BAG IVPB SCH ×3 (01:56→18:19)
[2020-10-03] MEDS: Azithromycin 500 MG in Sodium Chloride 0.9% 250 ML 250 ML IVPB SCH (01:59)
[2020-10-03] MEDS ORDERED: Azithromycin 500 MG VIAL ONE (02:00)
[2020-10-03] MEDS ORDERED: Sodium Chloride 0.9% 250 ML 250 ML ONE ×2 (02:00→02:01)
[2020-10-03] MEDS: cefTRIAXone\\ROCEPHIN 2 GM in Sodium Chloride 0.9% 100 ML IVPB SCH (02:13)
[2020-10-03 04:06] LABS: ALT (SGPT) 56 U/L (8-55); AST (SGOT) 30 U/L (5-34); Albumin 2.1 g/dL (3.4-4.8); Alkaline Phosphatase 61 U/L (40-110); Anion Gap 22 mmol/L (10-20); Bilirubin, Total 0.5 mg/dL (0.2-1.2); Calc. Creatinine Clearance 27 mL/min (70-130); Calcium 8.6 mg/dL (7.8-10.44); Carbon Dioxide 22 mmol/L (23-31); Chloride 100 mmol/L (98-107); Globulin 3.9 g/dL (2.4-3.5); Glucose 237 mg/dL (83-110); Potassium 3.7 mmol/L (3.5-5.1); Sodium 140 mmol/L (136-145)
[2020-10-03 04:12] LABS: #Neutrophils 15.9 10x3/uL (1.5-8.4); %Basophils 0.1 % (0.0-2.0); %Lymphocytes 2.2 % (18.0-47.0); %Monocytes 5.9 % (0.0-10.0); %Neutrophils 90.8 % (40.0-75.0); Hemoglobin 12.1 g/dL (13.5-17.5); Mean Corpuscular HGB CONC 33.4 g/dL (32.0-36.0); Mean Corpuscular Hemoglobin 32.4 pg (27.0-33.0); Mean Corpuscular Volume 96.8 fl (81.2-95.1); Mean Platelet Volume 13.9 fl (7.4-10.4); Platelet Count 169 10x3/uL (150-450); RBC Distribution Width 14.7 % (11.5-14.5); Red Blood Cell (RBC) Count 3.74 10x6/uL (4.32-5.72); White Blood Cell (WBC) Count 17.5 10x3/uL (3.5-10.5)
[2020-10-03 04:16] LABS: BUN (Urea Nitrogen) 208 mg/dL (8.4-25.7)
[2020-10-03] MEDS: Aspirin 81 mg Enteric Coated Tablet PO SCH (08:00)
[2020-10-03] MEDS: Enoxaparin Sodium 30 MG/0.3 ML SYRINGE SC SCH (08:00)
[2020-10-03] MEDS: Pantoprazole 40 MG VIAL IVP SCH (08:00)
[2020-10-03] MEDS: Dexamethasone 4 mg/ml Vial SLOW IVP SCH (08:00)
[2020-10-03] MEDS: Sodium Chloride 0.9% 1,000 ML IV SCH (18:19)
[2020-10-04 04:08] LABS: #Neutrophils 14.3 10x3/uL (1.5-8.4); %Basophils 0.1 % (0.0-2.0); %Lymphocytes 2.2 % (18.0-47.0); %Monocytes 6.2 % (0.0-10.0); %Neutrophils 90.7 % (40.0-75.0); Hemoglobin 11.6 g/dL (13.5-17.5); Mean Corpuscular Hemoglobin 32.1 pg (27.0-33.0); Mean Corpuscular Volume 97.5 fl (81.2-95.1); Mean Platelet Volume 13.6 fl (7.4-10.4); Platelet Count 148 10x3/uL (150-450); RBC Distribution Width 14.9 % (11.5-14.5); Red Blood Cell (RBC) Count 3.61 10x6/uL (4.32-5.72); White Blood Cell (WBC) Count 15.8 10x3/uL (3.5-10.5)
[2020-10-04 04:29] LABS: ALT (SGPT) 64 U/L (8-55); AST (SGOT) 28 U/L (5-34); Albumin 2.1 g/dL (3.4-4.8); Alkaline Phosphatase 56 U/L (40-110); Anion Gap 19 mmol/L (10-20); Bilirubin, Total 0.6 mg/dL (0.2-1.2); Calc. Creatinine Clearance 32 mL/min (70-130); Calcium 8.9 mg/dL (7.8-10.44); Carbon Dioxide 25 mmol/L (23-31); Chloride 104 mmol/L (98-107); Globulin 3.8 g/dL (2.4-3.5); Glucose 179 mg/dL (83-110); Potassium 3.8 mmol/L (3.5-5.1); Protein, Total 5.9 g/dL (5.8-8.1); Sodium 144 mmol/L (136-145)
[2020-10-04] MEDS: Dexmedetomidine In 0.9 % NaCl 400 MCG in Premix Bag 1 BAG IVPB SCH (04:41)
[2020-10-04 04:42] LABS: BUN (Urea Nitrogen) 194 mg/dL (8.4-25.7)
[2020-10-04] MEDS: Aspirin 81 mg Enteric Coated Tablet PO SCH (07:38)
[2020-10-04] MEDS: Enoxaparin Sodium 30 MG/0.3 ML SYRINGE SC SCH (07:38)
[2020-10-04] MEDS: Pantoprazole 40 MG VIAL IVP SCH (07:38)
[2020-10-04] MEDS: Dexamethasone 4 mg/ml Vial SLOW IVP SCH (09:03)
[2020-10-04] MEDS ORDERED: Scopolamine 1.5 mg/72 hour Patch TD SCH (10:30)
[2020-10-04] MEDS ORDERED: Morphine 2 MG/ML VIAL SLOW IVP PRN (13:58)
[2020-10-04] MEDS: Sodium Chloride 0.9% 1,000 ML IV SCH (23:10)
[2020-10-05 04:01] LABS: Hemoglobin 13.6 g/dL (13.5-17.5); Mean Corpuscular HGB CONC 32.9 g/dL (32.0-36.0); Mean Corpuscular Hemoglobin 32.3 pg (27.0-33.0); Mean Corpuscular Volume 98.3 fl (81.2-95.1); Mean Platelet Volume 13.9 fl (7.4-10.4); Platelet Count 235 10x3/uL (150-450); RBC Distribution Width 15.5 % (11.5-14.5); Red Blood Cell (RBC) Count 4.21 10x6/uL (4.32-5.72); White Blood Cell (WBC) Count 24.3 10x3/uL (3.5-10.5)
[2020-10-05 04:13] LABS: ALT (SGPT) 69 U/L (8-55); AST (SGOT) 29 U/L (5-34); Albumin 2.3 g/dL (3.4-4.8); Alkaline Phosphatase 69 U/L (40-110); Anion Gap 17 mmol/L (10-20); Bilirubin, Total 0.9 mg/dL (0.2-1.2); Calc. Creatinine Clearance 34 mL/min (70-130); Calcium 9.5 mg/dL (7.8-10.44); Carbon Dioxide 28 mmol/L (23-31); Chloride 108 mmol/L (98-107); Globulin 4.5 g/dL (2.4-3.5); Glucose 196 mg/dL (83-110); Potassium 3.7 mmol/L (3.5-5.1); Protein, Total 6.8 g/dL (5.8-8.1); Sodium 149 mmol/L (136-145)
[2020-10-05 04:28] LABS: Band 5 % (5-11); Lymphocytes 4 % (21-51); Monocytes 8 % (0-10); Reactive Lymphocytes 1 % (0-10)
[2020-10-05 04:30] LABS: Neutrophil 82 % (42-75); Ovalocytes SLIGHT = 2-5 cells (100X) (0-1/hpf)
[2020-10-05 04:31] LABS: Anisocytosis SLIGHT = 6-15 cells (100X) (0-5/hpf)
[2020-10-05 04:32] LABS: Hypersemented Neutrophil MODERATE; Large Platelets SLIGHT; Microcytosis SLIGHT = 6-15 cells (100X) (0-5/hpf); Platelet Clumps SLIGHT; Platelet Morphology Comment Appears Adequate
[2020-10-05 04:35] LABS: Giant Platelets SLIGHT; MDiff Complete? YES; Manual Diff?? YES
[2020-10-05 05:00] LABS: BUN (Urea Nitrogen) 174 mg/dL (8.4-25.7)
[2020-10-05 05:15] VITALS: BMI 29.7
[2020-10-05] MEDS: Pantoprazole 40 MG VIAL IVP SCH (09:13)
[2020-10-05] MEDS: Enoxaparin Sodium 30 MG/0.3 ML SYRINGE SC SCH (09:13)
[2020-10-05] MEDS: Aspirin 81 mg Enteric Coated Tablet PO SCH (09:13)
[2020-10-05] MEDS: HumaLOG 300 UNITS/3 ML VIAL SC PRN ×2 (12:02→22:24)
[2020-10-06] MEDS: HumaLOG 300 UNITS/3 ML VIAL SC PRN (05:34)
[2020-10-06 08:18] LABS: Mean Corpuscular HGB CONC 32.1 g/dL (32.0-36.0); Mean Corpuscular Hemoglobin 32.1 pg (27.0-33.0); Mean Platelet Volume 13.8 fl (7.4-10.4); Platelet Count 267 10x3/uL (150-450); RBC Distribution Width 16.1 % (11.5-14.5); Red Blood Cell (RBC) Count 4.36 10x6/uL (4.32-5.72); White Blood Cell (WBC) Count 35.4 10x3/uL (3.5-10.5)
[2020-10-06 08:23] LABS: Anion Gap 19 mmol/L (10-20); Calc. Creatinine Clearance 30 mL/min (70-130); Calcium 9.5 mg/dL (7.8-10.44); Carbon Dioxide 24 mmol/L (23-31); Chloride 110 mmol/L (98-107); Glucose 273 mg/dL (83-110); MDiff Complete? YES; Potassium 3.9 mmol/L (3.5-5.1); Sodium 149 mmol/L (136-145)
[2020-10-06 08:32] LABS: BUN (Urea Nitrogen) 192 mg/dL (8.4-25.7)
[2020-10-06 08:37] LABS: Band 4 % (5-11); Lymphocytes 1 % (21-51); Monocytes 4 % (0-10); Neutrophil 91 % (42-75)
[2020-10-06 08:38] LABS: Platelet Morphology Comment Appears Adequate
[2020-10-06 08:40] LABS: RBC Morphology Normal
[2020-10-06] MEDS ORDERED: Enoxaparin Sodium 30 MG/0.3 ML SYRINGE ONE (09:00)
[2020-10-06] MEDS: Enoxaparin Sodium 30 MG/0.3 ML SYRINGE SC SCH (09:05)
[2020-10-06] MEDS: Pantoprazole 40 MG VIAL IVP SCH (09:05)
[2020-10-06] MEDS: Aspirin 81 mg Enteric Coated Tablet PO SCH (09:05)
[2020-10-06] MEDS ORDERED: Sodium Chloride 0.45% 1,000 ML IV SCH (09:45)
[2020-10-06 11:42] VITALS: BP 97/55; TEMP 101
== END 2020-10-06 13:37 | disposition expired | DRG 207 ==
LOC: CSHERS 23:35 → CSHERHOLD 09-22 01:00 → CSHICU 09-22 19:12 → CSHTELE 10-05 14:12
PROVIDERS: ADMIT Family Medicine; ATTEND Family Medicine
PROC: 8E0ZXY6 Isolation (ICD-10-PCS; principal; 2020-09-22)
PROC: XW033E5 Introduction of Remdesivir Anti-infective into Peripheral Vein, Percutaneous Approach, New Technology Group 5 (ICD-10-PCS; 2020-09-22)
PROC: 5A09457 Assistance with Respiratory Ventilation, 24-96 Consecutive Hours, Continuous Positive Airway Pressure (ICD-10-PCS; 2020-09-22)
PROC: 5A1955Z Respiratory Ventilation, Greater than 96 Consecutive Hours (ICD-10-PCS; 2020-09-24)
PROC: 0BH17EZ Insertion of Endotracheal Airway into Trachea, Via Natural or Artificial Opening (ICD-10-PCS; 2020-09-24)
PROC: 3E033XZ Introduction of Vasopressor into Peripheral Vein, Percutaneous Approach (ICD-10-PCS; 2020-09-24)
PROC: 02HV33Z Insertion of Infusion Device into Superior Vena Cava, Percutaneous Approach (ICD-10-PCS; 2020-09-24)
PROC: B548ZZA Ultrasonography of Superior Vena Cava, Guidance (ICD-10-PCS; 2020-09-24)
DX: U07.1 COVID-19 (principal); L89.153 Pressure ulcer of sacral region, stage 3; J12.82 Pneumonia due to coronavirus disease 2019; G93.41 Metabolic encephalopathy; J80 Acute respiratory distress syndrome; N17.0 Acute kidney failure with tubular necrosis; N18.4 Chronic kidney disease, stage 4 (severe); E87.0 Hyperosmolality and hypernatremia; E87.2 Acidosis; Z66 Do not resuscitate; Z51.5 Encounter for palliative care; Z95.0 Presence of cardiac pacemaker; Z95.1 Presence of aortocoronary bypass graft; I25.10 Atherosclerotic heart disease of native coronary artery without angina pectoris; R73.9 Hyperglycemia, unspecified; R77.8 Other specified abnormalities of plasma proteins; D63.1 Anemia in chronic kidney disease; I50.9 Heart failure, unspecified; Z78.1 Physical restraint status
CPT/HCPCS: 36415; 36416; 36600; 51702; 71045; 76770; 80048; 80053; 80202; 81001; 81003; 82274; 82805; 83605; 83735; 83880; 84100; 85025; 85610; 85652; 85730; 86140; 87040; 87070; 87081; 87086; 87205; 93005; 93010; 94003; 94640; 94660; 94760; 96365; 96367; 96375; C9113; J0456; J0696; J1100; J1650; J1815; J1940; J2060; J2270; J2704; J3370; J3490; J7050; J7070